=== PATIENT | male | born 1990 | race Caucasian/White ===

== ENCOUNTER 2020-12-29 15:11 | Emergency (ER) | payer SELFPAY ==
[2020-12-29 15:34] VITALS: BP 145/76; BP 74/40; PULSE 78; RESP 18; TEMP 36.8; O2SAT 82; O2SAT 98; BMI 25.0
--- NOTE | 2020-12-29 15:37 | ED_ITS ---
HPI - Alcohol General Chief Complaint: ETOH/Substance Use Stated Complaint: ?etoh Time Seen by Provider: 12/29/20 15:20 Source: patient and EMS Mode of arrival: EMS History of Present Illness HPI narrative: 30-year-old male with a past medical history of ETOH abuse brought in by ambulance s/p founding sleeping outside by bystander who called EMS for ETOH intoxication. Patient reports drinking EtOH today, will not specify amount. Denies illicit drug use. Denies falls, injury/trauma. Denies SI/HI. Denies CP/SOB, abdominal pain, nausea/vomiting MD complaint: alcohol intoxication Related Data Allergies Allergy/AdvReac Type Severity Reaction Status Date / Time No Known Allergies Allergy Unverified 06/09/20 15:53 [No Known Allergies*] Review of Systems Review of Systems: Constitutional: No Fever, No Chills Cardiovascular: No Chest Pain, No SOB Respiratory: No Cough, No Dyspnea Gastrointestinal: No Nausea, No Vomiting, No Abdominal pain Musculoskeletal: No joint pain, No Myalgias, No Joint Swelling Skin: No Skin Lesions, No rash Neuro: No Headache Psych: No SI/HI Yes all other systems are reviewed and are negative [facility] Past Medical History Attestation statement: The following information was validated with the patient. Social History Social History Advance Directives: No Advance Directives Information Provided: No Physical Exam Vital Signs: Vital Signs: Last Vital Signs Temp 98.2 F 12/29/20 15:34 Pulse 78 12/29/20 15:34 Resp 18 12/29/20 15:34 BP 145/76 H 12/29/20 15:34 Pulse Ox 98 12/29/20 15:34 Body Mass Index 25.0 Const: Other: Intoxicated. ETOH odor on breath General: cooperative, alert and awake HENMT: Head: Yes normal to inspection, Yes atraumatic, No Esposito's sign and No raccoon eyes Ears: hearing grossly normal bilaterally General nose exam: Normal external nose present Face and sinus: Yes normal facial exam Mouth: Normal oral and palatal mucosa present Eyes: General: appearance normal, both eyes and all related structures Pupils: Equal, round and reactive pupils present EOM: EOMs intact bilaterally Neck: Neck: Yes normal visual inspection and Yes no meningeal signs Chest: Chest palpation & inspection: normal inspection of the chest Resp: Effort & Inspection: normal respiratory effort, no grunting and not labored Cardio: Rate: regular rate Heart sounds: S1 normal heart sound present and S2 normal heart sound present Skin: Rashes: no rashes Wounds: no wounds Neuro: General: tone normal, moves all extremities and no meningeal signs Cranial nerves: Yes Equal, round and reactive pupils present Gait exam (Neuro): Normal gait present Motor exam (neuro): no tremor noted and Motor fasciculations not present Extrem: General: Yes normal to inspection Course Course Course Narrative: Patient is ambulating in the ED with steady gait. Continuously denies SI/HI. Plan to DC MDM - Alcohol MDM Narrative Medical decision making narrative: 30-year-old male with a past medical history of ETOH abuse brought in by ambulance s/p founding sleeping outside by bystander who called EMS for ETOH intoxication. On exam/VSS, NAD, intoxicated/EtOH odor on breath, [place], atraumatic. Will continue to observe and reassess for clinical sobriety Differential Diagnosis Differential diagnosis: Likely alcohol dependence and alcohol intoxication Medical Records Attestation: I reviewed the patient's medical records. Discharge Plan Discharge Clinical Impression: Alcoholic intoxication Qualifiers: Complication of substance-induced condition: uncomplicated Qualified Code(s): F10.920 - Alcohol use, unspecified with intoxication, uncomplicated Patient Disposition: Home, Self-Care Instructions: Alcohol Intoxication (ED) Additional Instructions: Do not drink alcohol or take drugs it can kill you If you have thoughts of hurting herself or hurting others please return to the ED immediately Follow up with her doctor Referrals: Physician,None [Primary Care Provider] - 2 days
--- NOTE | 2020-12-29 16:01 | MHC.RECOVSUP ---
Recovery Support note: Patient is a 30 year old Vincentian speaking male who presented to [facility] ED via EMS due to falling asleep in the community intoxicated. Patient acknowledges that his drinking is problematic at this point and states he wants to get into a program however not today as he wishes to leave at this time. Provided patient with information on [facility] and encouraged him to go there tomorrow morning for assistance getting into a treatment program. Patient reports he is currently homeless and [place]. Patient is intoxicated at this time and focused on leaving. This mortgage or loan underwriter available as needed.
== END 2020-12-29 16:53 | disposition home or self-care (01) ==
PROVIDERS: Emergency Provider Emergency Medicine
DX: F10.120 Alcohol abuse with intoxication, uncomplicated (principal); Y90.9 Presence of alcohol in blood, level not specified
CPT/HCPCS: 99283

== ENCOUNTER 2021-01-30 01:47 | Emergency (ER) | payer SELFPAY ==
[2021-01-30 01:48] VITALS: BP 155/106; PULSE 110; RESP 16; TEMP 36.1; O2SAT 95; BMI 23.6
[2021-01-30 01:59] VITALS: TEMP 36.6
--- NOTE | 2021-01-30 02:11 | ED.ALCOHOL ---
HPI - Alcohol General Chief Complaint: ETOH/Substance Use Stated Complaint: ETOH Time Seen by Provider: 01/30/21 01:52 Source: patient Mode of arrival: EMS History of Present Illness HPI narrative: 31-year-old male arrives via EMS after being found outside and significantly intoxicated. Otherwise, patient denies any acute symptoms. Related Data Allergies Allergy/AdvReac Type Severity Reaction Status Date / Time No Known Allergies Allergy Unverified 06/09/20 15:53 [No Known Allergies*] Review of Systems Review of Systems: Pertinent positives and negatives as mentioned in HPI 10 point review systems is otherwise negative. [facility] Past Medical History Source: nursing notes reviewed Medical History ETOH abuse Social History Social History Alcohol intake: current Alcohol intake frequency: 3 or more drinks per day Alcohol type: hard liquor Smoking Status: Unknown if ever smoked Use of substances other than those prescribed or required for medical reasons: No Advance Directives: No Advance Directives Information Provided: No Physical Exam Vital Signs: Vital Signs: Last Vital Signs Temp 97.9 F 01/30/21 01:59 Pulse 97 01/30/21 03:58 Resp 20 01/30/21 03:58 BP 149/70 H 01/30/21 03:58 Pulse Ox 96 01/30/21 03:58 Body Mass Index 23.6 VITAL SIGNS: Reviewed. GENERAL: Well developed, well nourished, in no acute distress. HEAD: Normocephalic/atraumatic EYES: PERRLA, EOMI OROPHARYNX: no oral lesions noted, posterior pharynx clear NECK: Supple, no adenopathy LUNGS: Normal breath sounds. No adventitious sounds or accessory muscle use. SpO2<96> CARDIOVASCULAR: Regular rate and rhythm without noted murmurs ABDOMEN: Soft, non-tender, non-distended with bowel sounds. NEUROLOGIC: Alert and oriented x 3. Strength and sensation to light touch were grossly intact x 4. Course Course Course Narrative: 31-year-old male with history and clinical presentation consistent with significant alcohol intoxication. BAL-436. Signed out to Dr Gutierrez Reevaluation(s) Reevaluation #1: Patient placed in physician observation because the patient needed more time to sober. At the time observation was started the patient's vital signs were stable, patient is alert and oriented, neuro: Nonfocal, CV RRR, lungs clear Time: 04:15 MDM - Alcohol Lab Data Labs: Lab Results 01/30/21 Range/Units 02:41 Ethyl Alcohol 436 H* mg/dL Discharge Plan Discharge Clinical Impression: Alcoholic intoxication Patient Disposition: Home, Self-Care Instructions: Alcohol Intoxication (ED) Additional Instructions: Return to the emergency department for any acute worsening of symptoms. Referrals: Physician,Unknown [Primary Care Provider] - 2 days
--- NOTE | 2021-01-30 02:22 | PC.NURSE ---
pt requires frequent redirection to no use profanity and to participate in care. patietn offered tolieting/po intake/and warm blanket.
[2021-01-30 03:09] LABS: Ethanol 436 mg/dL
[2021-01-30 03:58] VITALS: BP 149/70; PULSE 97; RESP 20; O2SAT 96
[2021-01-30 07:00] VITALS: RESP 16
--- NOTE | 2021-01-30 07:52 | PC.NURSE ---
pt sleeping, snoring at this time. will complete ciwa when pt wakes up. plan for dc when sober.
[2021-01-30 10:00] VITALS: RESP 16
--- NOTE | 2021-01-30 12:59 | PC.NURSE ---
pt now awake. steady independent gate to bathroom and back. pt speaking with counselor - plan for detox.
[2021-01-30 13:14] VITALS: BP 131/84; PULSE 87; RESP 16; O2SAT 98
--- NOTE | 2021-01-30 13:25 | MHC.RECOVSUP ---
? Reason for consult:Continuity of care o Current location:[address] [place] [address] o Identified substance use concern: ETOH - Overdose - Seeking ATS (detox) - Support ? Intervention: o ATS bed search started/completed/in process o Community resources provided o Harm reduction discussion ? Plan: o Bed search in progress o Patient to follow up with [facility] after discharge ? Additional information: Pt. seeking detox, patient drank 9 beers and 5 fireballs. Pt. drinks this amount everyday. Bed search in progress.
--- NOTE | 2021-01-30 13:55 | MHC.RECOVSUP ---
? Reason for consult:Continuity of care o Current location: Discharged o Identified substance use concern:ETOH - Withdrawal - Support ? Intervention: o MAT started or to be started o Community resources provided o Harm reduction discussion ? Plan: o Referral to [facility] o Patient to follow up with [facility] after discharge ? Additional information:Patient discharged after changing his mind.
== END 2021-01-30 13:57 | disposition home or self-care (01) ==
PROVIDERS: Student in an Organized Health Care Education/Training Program; Emergency Provider Emergency Medicine
DX: F10.129 Alcohol abuse with intoxication, unspecified (principal); Y90.8 Blood alcohol level of 240 mg/100 ml or more; Z71.41 Alcohol abuse counseling and surveillance of alcoholic
CPT/HCPCS: 36415; 80320; 99285

== ENCOUNTER 2021-03-18 21:44 | Emergency (ER) | payer SELFPAY ==
[2021-03-18 21:53] VITALS: BP 130/88; PULSE 100; O2SAT 100
[2021-03-18 21:55] VITALS: BP 144/102; PULSE 104; RESP 18; TEMP 36.7; O2SAT 97; BMI 22.0
[2021-03-18 22:02] VITALS: BP 140/92
--- NOTE | 2021-03-18 22:32 | ED.GENADULT ---
HPI - General Adult General Chief complaint: Animal Bite Stated complaint: spider bite Time Seen by Provider: 03/18/21 22:31 Source: patient Mode of arrival: EMS Limitations: no limitations History of Present Illness HPI narrative: patient comes emergency room complaining of a spider bite to the left wrist. Patient states it started 2 days ago. Patient noticed that his wrist started becoming erythematous. Patient denies fever chills. Related Data Previous Rx's Medication Instructions Recorded cephalexin [Keflex] 750 mg PO BID #14 cap 03/18/21 doxycycline hyclate 100 mg PO BID #14 cap 03/18/21 Allergies Allergy/AdvReac Type Severity Reaction Status Date / Time No Known Allergies Allergy Unverified 06/09/20 15:53 [No Known Allergies*] Review of Systems Review of Systems: Constitutional : No Weight loss, No Fever, No Chills, No Night Sweats, No Fatigue, No Malaise ENT/Mouth : No Hearing loss, No Ear Pain, No Nasal Congestion, No Sinus Pain, No Hoarseness, No sore throat, No Rhinorrhea, No Swallowing Difficulty Eyes: No Eye Pain, No Swelling, No Redness, No Foreign Body, No Discharge, No Vision Changes Cardiovascular : No Chest Pain, No SOB, No Dyspnea on Exertion, No Orthopnea, No Edema, No Palpitations Respiratory : No Cough, No Sputum, No Wheezing, No Smoke Exposure, No Dyspnea Gastrointestinal : No Nausea, No Vomiting, No Diarrhea, No Constipation, No abdominal Pain, No Hematochezia, No Melena Genitourinary : no irregular bleeding, No Dysuria, No Urinary Frequency, No Hematuria, No Urinary Incontinence, No Urgency, No Flank Pain, No Urinary Flow Changes, No Hesitancy Musculoskeletal : No joint pain, No Myalgias, No Joint Swelling Skin : Abrasion to the left wrist Neuro : No Weakness, No Numbness, No Paresthesias, No Loss of Consciousness, No Dizziness, No Headache Psych : No Anxiety/Panic, No Depression, No SI/HI/AH/VH, No Social Issues, Heme/Lymph: No Bruising, No Bleeding,No Lymphadenopathy Endocrine : No Polyuria, No Polydipsia, No Temperature Intolerance PMFSH Past Medical History Medical History ETOH abuse Social History Social History Alcohol intake: current Alcohol intake frequency: 3 or more drinks per day Alcohol type: hard liquor Advance Directives: No Physical Exam Vital Signs: Vital Signs: Last Vital Signs Temp 98.1 F 03/18/21 21:55 Pulse 104 H 03/18/21 21:55 Resp 18 03/18/21 21:55 BP 140/92 H 03/18/21 22:02 Pulse Ox 97 03/18/21 21:55 Body Mass Index 22.0 Appearance: Alert. Oriented X3. No acute distress. Eyes: Pupils equal, round and reactive to light. ENT: Pharynx normal. Neck: Normal inspection. Neck supple. No lymph nodes noted. No crepitus CVS: Normal heart rate and rhythm. Pulses normal. Normal S1 and S2 Respiratory: No respiratory distress. Breath sounds normal. No Wheezing. No rales Abdomen: Soft and nontender. No rigidity. No distention. good BS x4 Skin: Skin warm and dry. patient has a small abrasion to the dorsum of the left wrist, approximately 0.5 cm, however the erythema extends 3 cm beyond the border of the abrasion. Patient is able to flex and extend the wrist with no pain Extremities: No lower extremity edema. No lower extremity edema. No Lacerations. No Rash Neuro: Oriented X 3. No motor deficit. No sensory deficit. Moving all extermities. No slurred speech. Course Course Course Narrative: it is unclear if patient actually did have a spider bite, he does have an abrasion and cellulitis. Patient was given the 1st dose of doxycycline and Keflex. Patient is able to flex and extend his wrist with no pain, at this time, septic joint is not suspected. Discharge Plan Discharge Clinical Impression: Cellulitis Qualifiers: Site of cellulitis: extremity Site of cellulitis of extremity: upper extremity Laterality: left Qualified Code(s): L03.114 - Cellulitis of left upper limb Patient Disposition: Home, Self-Care Instructions: Cellulitis (ED) Additional Instructions: Please follow-up with your primary care physician tomorrow. If you have any worsening or new symptoms, please return to the emergency room or call 911 Prescriptions: New cephalexin [Keflex] 750 mg capsule 750 mg PO BID Qty: 14 RF: 0 doxycycline hyclate 100 mg capsule 100 mg PO BID Qty: 14 RF: 0
[2021-03-18] MEDS: cephALEXin 500 MG CAPSULE PO (22:37)
--- NOTE | 2021-03-18 22:39 | PC.NURSE ---
pt yelling and swearing in the hallway stating that he hates [place] never should have come here . pt seen by the provider and antibiotics ordered and given to the patient for an infection in the hand. pt verbally loud and aggressive to staff. pt given oral antibiotics and water and a sandwich and was informed with the help of the application architect that his antibiotics would be sent to the pharmacy and he can pick them up tomorrow. pt continues to be verbally aggressive to staff and states that we Arent doing anything . pt educated on the importance of the antibiotics and advised to not drink when taking them. pt continues to talk over staff and walk away.
--- NOTE | 2021-03-18 22:42 | PC.NURSE ---
pt steady gate while ambulating discharge papers given and sandwich also given to the patient
== END 2021-03-18 22:43 | disposition home or self-care (01) ==
PROVIDERS: Emergency Provider Emergency Medicine
DX: L03.114 Cellulitis of left upper limb (principal)
CPT/HCPCS: 99283

== ENCOUNTER 2021-05-01 04:33 | Emergency (ER) | payer SELFPAY ==
[2021-05-01 08:40] VITALS: BP 138/104; PULSE 73; RESP 16; TEMP 36.6; O2SAT 97; BMI 22.1
--- NOTE | 2021-05-01 09:03 | ED.EYEPROB ---
HPI - Eye Problem General Chief complaint: Eye Problems Stated complaint: eye issues Time Seen by Provider: 05/01/21 08:42 Source: patient Mode of arrival: ambulatory Limitations: no limitations History of Present Illness HPI Narrative: eye irritation for 3 months. No redness, patient states he is homeless. chief complaint: eye pain Onset (ago): week(s) Onset description: gradual Duration: constant Location: left eye Eye Symptoms: pain Mechanism: none Severity: mild Related Data Previous Rx's Medication Instructions Recorded cephalexin 750 mg capsule (Keflex) 750 mg PO BID #14 cap 03/18/21 doxycycline hyclate 100 mg capsule 100 mg PO BID #14 cap 03/18/21 erythromycin 5 mg/gram (0.5 %) eye 0.5 inch OPHTHALMIC (EYE) QID #3.5 05/01/21 ointment g Allergies Allergy/AdvReac Type Severity Reaction Status Date / Time No Known Allergies Allergy Unverified 06/09/20 15:53 [No Known Allergies*] Review of Systems Constitutional: Constitutional: Reports no additional constitutional complaints Eyes: Eyes: Reports no additional eye complaints ENT: Denies dizziness Cardiovascular: Cardiovascular: Reports no additional cardiovascular complaints Respiratory: Respiratory: Reports as per HPI Gastrointestinal: Gastrointestinal: Reports no additional gastrointestinal complaints Musculoskeletal: Musculoskeletal: Reports no additional musculoskeletal complaints Integumentary/Breasts: Skin/Breast: Denies rash Neurologic: Reports system reviewed and no additional complaints, except as documented, Denies dizziness and Denies Sensory deficit (Neuro) Psychiatric: Psychiatric: Denies anxiety PMF Past Medical History Medical History ETOH abuse Social History Social History Alcohol intake: current Alcohol intake frequency: 3 or more drinks per day Alcohol type: hard liquor Advance Directives: No Advance Directives Information Provided: No Physical Exam Vital Signs: Vital Signs: Last Vital Signs Temp 97.8 F 05/01/21 08:40 Pulse 73 05/01/21 08:40 Resp 16 05/01/21 08:40 BP 138/104 H 05/01/21 08:40 Pulse Ox 97 05/01/21 08:40 Body Mass Index 22.1 Const: General: healthy appearing Nutritional Appearance: average body habitus Orientation/consciousness: oriented to person and patient oriented x3 Limitations: no limitations HENMT: Head: Yes normal to inspection Ears: external ears normal General nose exam: Normal external nose present Mouth: Normal oral and palatal mucosa present and oropharynx normal Throat: Yes posterior oropharynx normal Eyes: Other: armin pressures 10, 10, 12. patient with swollen inferior eyelid that the patient has had for a while. Will treat for chalazion General: appearance normal, both eyes and all related structures Neck: Other: supple Neck: Yes normal visual inspection Chest: Chest palpation & inspection: normal inspection of the chest Resp: Auscultation: clear to auscultation bilaterally Cardio: Jugular venous distension: no JVD Rate: regular rate Rhythm: regular rhythm Heart sounds: S1 normal heart sound present and S2 normal heart sound present GI: Inspection: Yes normal to inspection Palpation (GI): Soft to palpation, nontender and No hepatosplenomegaly present Auscultation: normal bowel sounds : General: Yes no CVA tenderness Back/Spine/Pelvis: Back: no CVA tenderness Skin: General skin exam: no rashes or lesions noted Neuro: General: oriented to person and patient oriented x3 Cranial nerves: Yes CN's II-XII intact bilaterally Motor exam (neuro): 5/5 motor strength present throughout Sensory Exam: No Sensory deficit (Neuro) Extrem: General: Yes normal to inspection Psych: Appearance: grossly normal Course Reevaluation(s) Reevaluation #1: no eye injection, pressures normal, swelling to inferior lid will treat for chalazion with erythromycin Time: 09:19 Discharge Plan Discharge Clinical Impression: Chalazion left lower eyelid Patient Disposition: Home, Self-Care Instructions: Chalazion (ED) Additional Instructions: warm soaks 20 minutes off and on Prescriptions: New erythromycin 5 mg/gram (0.5 %) ointment 0.5 inch ophthalmic (eye) QID Qty: 3.5 RF: 0 No Action cephalexin [Keflex] 750 mg capsule 750 mg PO BID Qty: 14 RF: 0 doxycycline hyclate 100 mg capsule 100 mg PO BID Qty: 14 RF: 0
[2021-05-01] MEDS: Tetracaine HCl/PF 0.5% Oph Sol 4 ML DROPS 3 DROP EYE-LEFT (09:37)
[2021-05-01] MEDS: Erythromycin Base 0.5% Oph Oin 1 GM TUBE 1 CM EYE-LEFT (09:38)
--- NOTE | 2021-05-01 09:38 | PC.NURSE ---
Dr Mehta in to assess eye, pressures normal per MD. Erthromycin to eye as charted. Kenan from CARE team to bedside and discussing detox beds.
--- NOTE | 2021-05-01 09:54 | MHC.RECOVSUP ---
Recovery Support note: Patient is a 31 year old Mauritanian speaking male who presented to [facility] ED due to an eye issue. Patient was treated and is medically cleared. Patient reported to ED staff that he drinks everyday and that he wants to stop. This adjusto writer operator met with patient to discuss his alcohol use and treatment options. Patient reports he drinks liquor daily and he goes into withdrawal if he stops drinking. Patient states I'm still young, this is no way to live. Patient reports previous attempts at getting into detox have been unsuccessful. Patient reports he is willing to go anywhere for treatment. This adjusto writer operator will assist patient in securing a detox bed.
== END 2021-05-01 11:13 | disposition home or self-care (01) ==
PROVIDERS: Emergency Provider Emergency Medicine
DX: H00.15 Chalazion left lower eyelid (principal); H57.12 Ocular pain, left eye; Z79.899 Other long term (current) drug therapy
CPT/HCPCS: 99283

== ENCOUNTER 2021-09-12 16:34 | Emergency (ER) | payer OTHER, SELFPAY ==
--- NOTE | ~2021-09-12 | XR_ITS ---
EXAMINATION: XR CHEST CLINICAL INFORMATION: Shortness of breath with cough COMPARISON: None TECHNIQUE: Frontal view of the chest was obtained. FINDINGS: There is no evidence for an infiltrate. Lung mijares are grossly clear. The cardiac silhouette is within normal limits. There is no effusion. The hilar regions do not appear pathologically enlarged. XR/XR chest 1V IMPRESSION: No acute finding
[2021-09-12 17:17] VITALS: BP 100/71; PULSE 80; RESP 16; TEMP 36.9; BMI 21.5
[2021-09-12 18:01] LABS: COVID-19 Test Positive (Negative)
[2021-09-12 20:08] VITALS: BP 134/91; PULSE 70; RESP 16; TEMP 36.9; O2SAT 99
--- NOTE | 2021-09-12 21:06 | ED_ITS ---
HPI - URI/Sore Throat General Chief Complaint: Upper Respiratory Symptoms Stated Complaint: Flu like symptoms Time Seen by Provider: 09/12/21 20:25 Source: patient Mode of arrival: ambulatory History of Present Illness HPI Narrative: 31-year-old male with no significant past medical history presenting to the ED complaining of productive cough, rhinorrhea, nasal congestion, sore throat x 2 days. Patient reports he is homeless however spent the night with a friend for couple days who tested positive this morning. Reports mild SOB during coughing fits. Denies CP, fever, chills, pedal edema, recent travel MD elicited complaint: cough, sore throat, rhinorrhea and nasal congestion Related Data Previous Rx's Medication Instructions Recorded cephalexin 750 mg capsule (Keflex) 750 mg PO BID #14 cap 03/18/21 doxycycline hyclate 100 mg capsule 100 mg PO BID #14 cap 03/18/21 erythromycin 5 mg/gram (0.5 %) eye 0.5 inch OPHTHALMIC (EYE) QID #3.5 05/01/21 ointment g Allergies Allergy/AdvReac Type Severity Reaction Status Date / Time No Known Allergies Allergy Unverified 06/09/20 15:53 [No Known Allergies*] Review of Systems Review of Systems: Constitutional: No Fever, No Chills ENT/Mouth: No Ear Pain, + Nasal Congestion, No Sinus Pain, No Hoarseness, + sore throat, + Rhinorrhea, No Swallowing Difficulty Cardiovascular: No Chest Pain, No SOB Respiratory: + Cough, + Sputum, No Wheezing Gastrointestinal: No Nausea, No Vomiting, No Diarrhea, No Constipation, No Abdominal pain Genitourinary:No Hematuria, No Urgency, No Flank Pain Musculoskeletal: No joint pain, + Myalgias, No Joint Swelling Skin: No Skin Lesions, No rash Neuro: No Weakness Yes all other systems are reviewed and are negative PMFSH Past Medical History Attestation statement: The following information was validated with the patient. Medical History ETOH abuse Social History Social History Alcohol intake: current Alcohol intake frequency: 3 or more drinks per day Alcohol type: hard liquor Advance Directives: No Advance Directives Information Provided: Yes Physical Exam Vital Signs: Vital Signs: Last Vital Signs Temp 98.4 F 09/12/21 20:08 Pulse 70 09/12/21 20:08 Resp 16 09/12/21 20:08 BP 134/91 H 09/12/21 20:08 Pulse Ox 99 09/12/21 20:08 BMI result Body Mass Index 21.5 Const: General: cooperative and healthy appearing Orientation/consciousness: patient oriented x3 Limitations: no limitations HENMT: Head: Yes normal to inspection Ears: hearing grossly normal bilaterally, external ears normal, TM's normal bilaterally and mastoids normal General nose exam: Normal external nose present Face and sinus: Yes normal facial exam Mouth: Normal oral and palatal mucosa present Throat: Yes posterior oropharynx normal, Yes tonsils normal, No peritonsillar mass and No uvular edema Eyes: General: appearance normal, both eyes and all related structures EOM: EOMs intact bilaterally Neck: Neck: Yes normal visual inspection, Yes no meningeal signs, Yes trachea midline, Yes supple and No anterior neck swelling Resp: Effort & Inspection: normal respiratory effort and no respiratory distress Auscultation: clear to auscultation bilaterally, no crackles, no rales, no rhonchi and no wheezes Cardio: Rate: regular rate Heart sounds: S1 normal heart sound present and S2 normal heart sound present Skin: Rashes: no rashes Wounds: no wounds Neuro: General: patient oriented x3 and no meningeal signs Gait exam (Neuro): Normal gait present Extrem: General: Yes normal to inspection, Yes no pedal edema and Yes no calf tenderness Course Course Course Narrative: -COVID-19 --XR chest 1V IMPRESSION: No acute finding >> results discussed with patient including worrisome signs and symptoms and strict return precautions MDM - URI/Sore Throat [facility] Narrative Medical decision making narrative: 31-year-old male with no significant past medical history presenting to the ED complaining of productive cough, rhinorrhea, nasal congestion, sore throat x 2 days. On exam vital signs stable, NAD/nontoxic, lungs CTA. Concern for viral syndrome/COVID-19. Symptoms atypical for ACS/PE Plan: COVID-19 testing, CXR Differential Diagnosis Differential diagnosis: Likely upper respiratory infection, sinusitis, viral infection, bronchitis, influenza and pharyngitis Medical Records Attestation: I reviewed the patient's medical records. Lab Data Attestation: I reviewed the patient's lab results. Labs: Lab Results 09/12/21 Range/Units 17:39 COVID-19 (M[facility]) Positive A (Negative) COVID-19 Clin Com See Note Discharge Plan Discharge Clinical Impression: COVID-19 Patient Disposition: Home, Self-Care Instructions: COVID-19 (Coronavirus Disease 2019) (ED) Additional Instructions: At this time you will be okay for discharge. Please self isolate for 10-14 days. Do not expose yourself to others. You may not go to work or school. Please continue to follow cold instructions and wash your hands frequently. You may take Tylenol / Motrin as directed on the bottle for pain or fever. If you have constant or persistent shortness of breath, fever unresolved with medications, chest pain, or your unable to eat or drink please return to the ED CDC Guidelines for home isolation: - Stay away from others - WEAR A MASK if you are sick AND STAY HOME - Cover your mouth and nose with a tissue when you cough or sneeze. Dispose of tissues in a lined trash can and wash your hands immediately with soap and water for at least 20 seconds. If soap and water are not available, clean hands with alcohol-based hand holiday detector operator that contains at least 60% alcohol. - Clean your hands often with soap and water for at least 20 seconds - Avoid touching your eyes, nose and mouth with unwashed hands - Do not share dishes, drinking glasses, cups, eating utensils, towels, or bedding with other people in your home. After using these items, wash them thoroughly with soap and water or put in the compo caster. - Clean high-touch surfaces in your isolation area ( sick room and bathroom) every day; let a caregiver clean and disinfect high-touch surfaces in other areas of the home. Clean the area or item with soap and water or another detergent if it is dirty. Then, use a household disinfectant. - Limit contact with pets and animals: If you must care for a pet, wash your mendoza ds before and after interacting with them) Prescriptions: No Action cephalexin [Keflex] 750 mg capsule 750 mg PO BID Qty: 14 RF: 0 doxycycline hyclate 100 mg capsule 100 mg PO BID Qty: 14 RF: 0 erythromycin 5 mg/gram (0.5 %) ointment 0.5 inch ophthalmic (eye) QID Qty: 3.5 RF: 0 Referrals: Physician,None [Primary Care Provider] - 1 week (as needed.)
== END 2021-09-12 22:22 | disposition home or self-care (01) ==
PROVIDERS: Emergency Medicine; Emergency Provider Emergency Medicine
DX: U07.1 COVID-19 (principal)
CPT/HCPCS: 36415; 71045; 87635; 99283; 99284

== ENCOUNTER 2021-09-22 21:27 | Emergency (ER) | payer OTHER, SELFPAY ==
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
[2021-09-22 21:44] VITALS: BP 145/103; PULSE 102; RESP 18; TEMP 37; O2SAT 97; BMI 25.1
[2021-09-22] MEDS: Diphth,Pertus(ACell),Tet Adult 0.5 ML SYRINGE IM (22:01)
[2021-09-22 22:18] LABS: COVID-19 Test Positive (Negative)
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
--- NOTE | 2021-09-22 23:35 | PC.NURSE ---
pt is constantly yelling out, removing mask, and won't stay in stretcher. pt c/o discomfort to levi hands. PA aware.
== END 2021-09-23 00:41 | disposition home or self-care (01) ==
PROVIDERS: Nurse Practitioner Family; Emergency Provider Internal Medicine
DX: U07.1 COVID-19 (principal); F10.120 Alcohol abuse with intoxication, uncomplicated; Y90.9 Presence of alcohol in blood, level not specified; F17.200 Nicotine dependence, unspecified, uncomplicated
CPT/HCPCS: 36415; 87635; 90471; 90715; 99283; 99284

== ENCOUNTER 2021-09-28 21:12 | Emergency (ER) | payer MEDICAID, SELFPAY ==
[2021-09-28 22:14] VITALS: BP 150/108; PULSE 114; RESP 20; TEMP 36.4; O2SAT 98; BMI 22.8
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
[2021-09-29 08:26] VITALS: BP 149/108; PULSE 93; RESP 18; TEMP 36.7; O2SAT 98
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
[2021-09-29 09:33] LABS: COVID-19 Test Negative (Negative)
[2021-09-29] MEDS: Cyclobenzaprine HCl 10 MG TABLET PO (10:07)
[2021-09-29] MEDS: Ibuprofen 600 MG TABLET PO (10:07)
--- NOTE | 2021-09-29 10:51 | MHC.CARE ---
Pt is experiencing homelessness plan for Pt to the living room via [employer].
== END 2021-09-29 11:15 | disposition home or self-care (01) ==
PROVIDERS: Emergency Provider Emergency Medicine
DX: Z04.1 Encounter for examination and observation following transport accident (principal); M79.652 Pain in left thigh; M79.651 Pain in right thigh; Z59.00 Homelessness unspecified
CPT/HCPCS: 87635; 99283; 99284

== ENCOUNTER 2022-01-21 20:41 | Emergency (ER) | payer MEDICAID, SELFPAY ==
--- NOTE | ~2022-01-21 | XR_ITS ---
EXAMINATION: XR SHOULDER, LEFT CLINICAL INFORMATION: Left shoulder pain COMPARISON: None TECHNIQUE: Three views of the left shoulder. FINDINGS: The bones and soft tissues are normal. No fracture. Glenohumeral and acromioclavicular alignment is anatomic with normal joint space. No abnormal soft tissue calcifications. XR/XR shoulder LT min 2V IMPRESSION: Normal left shoulder.
[2022-01-21 20:49] VITALS: BP 134/72; PULSE 124; O2SAT 95
[2022-01-21 21:02] VITALS: BP 140/105; PULSE 115; RESP 20; TEMP 37.2; O2SAT 96; BMI 22.8
--- NOTE | 2022-01-21 21:13 | ECG_ITS ---
Test Reason : tacycardia Blood Pressure : / mmHG Vent. Rate : 086 BPM Atrial Rate : 086 BPM P-R Int : 132 ms QRS Dur : 096 ms QT Int : 372 ms P-R-T Axes : 062 070 052 degrees QTc Int : 445 ms Normal sinus rhythm Incomplete right bundle branch block Borderline ECG When compared with ECG of 23-JUN-2019 18:59, No significant change was found Referred By: Genevieve Delacruz Electronically Signed By:BERNICE SALEH MD
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
--- NOTE | 2022-01-21 21:29 | PHA.MEDREC ---
Pharmacy Consult ? Medication Reconciliation Pharmacy has completed the medication reconciliation.
[2022-01-21 21:36] LABS: MANUAL DIFF FLAG NO
[2022-01-21 21:41] LABS: Hematocrit 42.8 % (42.0-52.0); Hemoglobin 14.6 g/dl (14.0-18.0); Imm Gran Abs Auto 0.01 X10*3/uL (0.00-0.03); Imm Gran Pct Auto 0.3 % (0.0-0.4); Lymphocytes Absolute Auto 1.1 X10*3/uL (1.2-4.9); Lymphocytes Percent Auto 29.6 % (20-40); Mean Corpuscular HGB Conc 34.1 g/dl (31.0-36.0); Mean Corpuscular Hemoglobin 31.1 pg (27.0-33.0); Mean Corpuscular Volume 91.1 fL (80.0-98.0); Mean Platelet Volume 10.3 fL (9.4-12.4); Monocytes Absolute Auto 0.6 X10*3/uL (0.1-1.2); Monocytes Percent Auto 15.2 % (2-11); Neutrophils Percent Auto 52.9 % (45-73); Platelet Count 175 X10*3/uL (160-400); Red Cell Distribution Width 12.6 % (11.0-16.0); White Blood Count 3.8 X10*3/uL (4.8-10.8)
[2022-01-21] MEDS: 0.9 % Sodium Chloride 1,000 ML 999 ML IV (21:50)
[2022-01-21 21:55] LABS: Ethanol 402 mg/dL
[2022-01-21 21:57] LABS: COVID-19 Test Negative (Negative)
[2022-01-21 21:58] LABS: Troponin-I High Sensitivity 5.3 ng/L (<3.5-35.0)
[2022-01-21 22:01] LABS: Alanine Aminotransferase 137 U/L (0-40); Albumin Level 4.4 g/dL (3.5-5.0); Alkaline Phosphatase 151 U/L (39-117); Anion Gap 18 (12-20); Aspartate Amino Transferase 174 U/L (5-37); Bilirubin Total 0.5 mg/dL (0.0-1.0); Blood Urea Nitrogen 11 mg/dL (9-16); Calcium 9.4 mg/dL (8.4-10.2); Carbon Dioxide 25 mmol/L (22-29); Chloride 105 mmol/L (96-108); Creatinine Clr Calc Pharmacy 116.4; Estimated Glomerular Filt Rate > 60; Glucose Random 91 mg/dL (60-115); Magnesium 2.2 mg/dL (1.6-2.6); Potassium 3.8 mmol/L (3.3-5.1); Sodium 144 mmol/L (135-145); Total Protein 8.1 g/dL (6.5-8.0)
[2022-01-21] MEDS: LORazepam 1 MG TABLET 2 MG PO (22:04)
--- NOTE | 2022-01-21 22:43 | MHC.CARE ---
Recovery team will follow up with pt in the morning when his blood alcohol level has decreased.
[2022-01-21 23:32] VITALS: BP 127/63; PULSE 94; RESP 16; TEMP 37.1; O2SAT 95
--- NOTE | 2022-01-22 05:54 | PC.NURSE ---
[facility] online referral completed by this RN.
[2022-01-22 07:44] VITALS: BP 147/74; PULSE 73; RESP 19; O2SAT 98
--- NOTE | 2022-01-22 07:45 | PC.NURSE ---
sleeping and easily woken, skin wpd, alert, speech clear, no signs of withdrawl, no tremors, juice and warm blanket given, wants detox, daily etoh
--- NOTE | 2022-01-22 08:07 | MHC.RECOVSUP ---
Addendum entered by Kenan Canales [facility] 01/22/22 12:04: Patient declined from [facility] due to being uninsured. No beds available at [facility]. Patient accepted to [facility] and will be sent via [employer]. Original Note: Recovery Support note: Patient is a 32 year old Azeri speaking male who presented to [facility] ED seeking detox. Patient reports drinking 5 nips a day in addition to 4 beers. Patient demonstrates a sincere interest in getting help and getting into treatment. Patient reports he is willing to go anywhere for treatment. This production underwriter will assist patient in referring to ATS facilities.
[2022-01-22] MEDS: LORazepam 1 MG TABLET 2 MG PO (10:35)
[2022-01-22 12:03] VITALS: BP 160/75; PULSE 81; RESP 18; TEMP 36.9; O2SAT 99
== END 2022-01-22 12:05 | disposition other institution (70) ==
PROVIDERS: Physician Assistant; Emergency Provider Emergency Medicine
DX: F10.229 Alcohol dependence with intoxication, unspecified (principal); Y90.8 Blood alcohol level of 240 mg/100 ml or more; M25.512 Pain in left shoulder; F17.210 Nicotine dependence, cigarettes, uncomplicated; Z20.822 Contact with and (suspected) exposure to COVID-19
CPT/HCPCS: 36415; 73030; 80053; 82077; 83735; 84484; 85025; 87635; 93005; 96360; 99284

== ENCOUNTER 2022-04-14 09:15 | Emergency (ER) | payer MEDICAID, SELFPAY ==
[2022-04-14 09:24] VITALS: BP 121/76; BP 127/78; PULSE 90; PULSE 94; RESP 20; TEMP 37.1; O2SAT 92; O2SAT 95; BMI 22.8
--- NOTE | 2022-04-14 09:34 | ED.ALCOHOL ---
HPI - Alcohol General Chief Complaint: ETOH/Substance Use Stated Complaint: ETOH Time Seen by Provider: 04/14/22 09:29 Source: patient and EMS Mode of arrival: EMS Limitations: no limitations History of Present Illness HPI narrative: 32-year-old male with history of substance abuse presents with reports of drinking several alcoholic beverages this morning. Patient tells me last night he use some cocaine. He tells me he has longstanding history of alcohol use and uses every day. Patient tells me detox does not work for him. He has also tried Librium before but this does not help. Patient states nothing helps. He is not interested in detox. He denies suicidal or homicidal ideation. He has no physical complaints. He is currently homeless Related Data Home Medications Medication Instructions Recorded Confirmed No Known Home Meds 01/21/22 01/21/22 Allergies Allergy/AdvReac Type Severity Reaction Status Date / Time No Known Allergies Allergy Verified 01/21/22 21:04 [No Known Allergies*] Review of Systems Review of Systems: Yes all other systems are reviewed and are negative Constitutional: Constitutional: Reports no additional constitutional complaints, Denies body ache(s), Denies chills, Denies fever(s), Denies headache(s) and Denies weakness Eyes: Eyes: Reports no additional eye complaints and Denies change in vision ENT: Reports system reviewed and no additional complaints, except as documented, Denies dizziness, Denies headache(s), Denies nasal congestion, Denies nasal discharge and Denies neck pain Cardiovascular: Cardiovascular: Reports no additional cardiovascular complaints, Denies chest pain, Denies leg edema and Denies dyspnea Respiratory: Respiratory: Reports no additional respiratory complaints, Denies cough and Denies dyspnea Gastrointestinal: Gastrointestinal: Reports no additional gastrointestinal complaints, Denies abdominal pain, Denies diarrhea, Denies nausea and Denies vomiting Genitourinary: Genitourinary: Denies urinary incontinence Musculoskeletal: Musculoskeletal: Reports no additional musculoskeletal complaints, Denies back pain, Denies arthralgias, Denies joint swelling, Denies neck pain, Denies numbness and Denies tingling Integumentary/Breasts: Skin/Breast: Reports system reviewed and no additional complaints, except as docu and Denies rash Neurologic: Reports system reviewed and no additional complaints, except as documented, Denies dizziness, Denies headache(s), Denies numbness, Denies tingling and Denies weakness Psychiatric: Psychiatric: Denies homicidal ideation and Denies suicidal ideation [facility] Past Medical History Attestation statement: The following information was validated with the patient. Source: old records reviewed and nursing notes reviewed Medical History ETOH abuse Social History Social History Alcohol intake: current Alcohol intake frequency: 3 or more drinks per day Alcohol type: hard liquor Patient Tobacco Use Status: Current someday Tobacco user Advance Directives: No Advance Directives Information Provided: No Physical Exam ED Vital Signs: Vital Signs - 24 hr 04/14/22 09:24 Temperature 98.8 F Pulse Rate 94 Respiratory Rate 20 Blood Pressure 121/76 Pulse Oximetry 95 Oxygen Delivery Method Room Air BMI result Body Mass Index 22.8 Const General: cooperative, healthy appearing, comfortable and no acute distress Orientation/consciousness: patient oriented x3 Limitations: no limitations HENMT Head: Yes normal to inspection Ears: hearing grossly normal bilaterally Eyes General: appearance normal, both eyes and all related structures Pupils: Equal, round and reactive pupils present Neck Neck: Yes normal visual inspection, Yes full ROM, Yes no lymphadenopathy and Yes no meningeal signs Chest Chest palpation & inspection: normal inspection of the chest Resp Effort & Inspection: normal respiratory effort Auscultation: clear to auscultation bilaterally Cardio Rate: regular rate Rhythm: regular rhythm Peripheral pulses: Peripheral pulses 2+ throughout GI Inspection: Yes normal to inspection Palpation (GI): Soft to palpation and nontender Skin General skin exam: no rashes or lesions noted Neuro Other: Patient is sleeping but arouses to verbal General: patient oriented x3, moves all extremities and no meningeal signs Cranial nerves: Yes Equal, round and reactive pupils present Cognition (Neuro): normal cognition Course Course Course Narrative: Patient had 2 sb Ales 2 cheese sticks, a sandwich and a cookie Patient is up and ambulatory to the bathroom with a steady gait. He is alert oriented. Clinically he is sober and can be discharged. He was offered detox again but he declined. MDM - Alcohol MDM Narrative Medical decision making narrative: 32-year-old male here after having several alcoholic beverages and using some cocaine. No suicidal thoughts. No physical complaints. No concern for acute ingestion or trauma. Patient not interested in detox. Clinically he is intoxicated. Will need a sober re-evaluate prior to discharge Medical Records Attestation: I reviewed the patient's medical records. Lab Data Attestation: I reviewed the patient's lab results. Discharge Plan Discharge Clinical Impression: Alcoholic intoxication Patient Disposition: Home, Self-Care Instructions: Alcohol Intoxication (ED) Additional Instructions: Your offer detox but you declined Prescriptions: No Action No Known Home Meds Interventions: ED Discharge Assessment Last Done: 04/14/22 16:07 Discharge Date/Time: 04/14/22 16:07
--- NOTE | 2022-04-14 11:29 | MHC.RECOVRN ---
Briefly met with pt in 22H to discuss substance use. Pt sleeping, wakes momentarily to voice. Pt declines ATS or recovery services at this time. RN aware.
== END 2022-04-14 16:07 | disposition home or self-care (01) ==
PROVIDERS: Emergency Provider Student in an Organized Health Care Education/Training Program
DX: F10.120 Alcohol abuse with intoxication, uncomplicated (principal); Y90.9 Presence of alcohol in blood, level not specified; F19.10 Other psychoactive substance abuse, uncomplicated; F17.200 Nicotine dependence, unspecified, uncomplicated
CPT/HCPCS: 99282

== ENCOUNTER 2022-04-24 10:23 | Emergency (ER) | payer MEDICAID, SELFPAY ==
--- NOTE | ~2022-04-24 | XR_ITS ---
EXAMINATION: 2 VIEW CHEST, LUMBAR SPINE, PELVIS AND RIGHT HIP CLINICAL INFORMATION: Low back pain, posterior hip pain and cough with green sputum COMPARISON: Chest radiograph 09/12/2021 TECHNIQUE: 2 view chest, 3 views lumbar spine, single view pelvis with 2 additional views right hip FINDINGS: No significant abnormalities seen involving the heart, lungs, mediastinum or bony thorax. The lumbar spine appears normal. Vertebral body heights and disc spaces are well preserved. No significant degenerative changes are present. No significant bone, joint or soft tissue abnormality is seen in the pelvis or right hip. XR/XR chest 2V IMPRESSION: Normal exams.
--- NOTE | ~2022-04-24 | XR_ITS ---
EXAMINATION: 2 VIEW CHEST, LUMBAR SPINE, PELVIS AND RIGHT HIP CLINICAL INFORMATION: Low back pain, posterior hip pain and cough with green sputum COMPARISON: Chest radiograph 09/12/2021 TECHNIQUE: 2 view chest, 3 views lumbar spine, single view pelvis with 2 additional views right hip FINDINGS: No significant abnormalities seen involving the heart, lungs, mediastinum or bony thorax. The lumbar spine appears normal. Vertebral body heights and disc spaces are well preserved. No significant degenerative changes are present. No significant bone, joint or soft tissue abnormality is seen in the pelvis or right hip. XR/XR hip RT w PEL1V IMPRESSION: Normal exams.
--- NOTE | ~2022-04-24 | XR_ITS ---
EXAMINATION: 2 VIEW CHEST, LUMBAR SPINE, PELVIS AND RIGHT HIP CLINICAL INFORMATION: Low back pain, posterior hip pain and cough with green sputum COMPARISON: Chest radiograph 09/12/2021 TECHNIQUE: 2 view chest, 3 views lumbar spine, single view pelvis with 2 additional views right hip FINDINGS: No significant abnormalities seen involving the heart, lungs, mediastinum or bony thorax. The lumbar spine appears normal. Vertebral body heights and disc spaces are well preserved. No significant degenerative changes are present. No significant bone, joint or soft tissue abnormality is seen in the pelvis or right hip. XR/XR lumbar spine 2-3V IMPRESSION: Normal exams.
[2022-04-24 10:48] VITALS: BP 144/89; PULSE 93; RESP 16; TEMP 36.7; O2SAT 99; BMI 23.6
[2022-04-24 10:50] VITALS: BP 160/108; PULSE 105; O2SAT 98
--- NOTE | 2022-04-24 11:30 | ECG_ITS ---
Test Reason : med clearance Blood Pressure : / mmHG Vent. Rate : 085 BPM Atrial Rate : 085 BPM P-R Int : 120 ms QRS Dur : 088 ms QT Int : 394 ms P-R-T Axes : 057 066 048 degrees QTc Int : 468 ms Normal sinus rhythm Normal ECG When compared with ECG of 21-JAN-2022 22:08, No significant change was found Referred By: Mary Kinney Electronically Signed By:BERNICE SALEH MD
[2022-04-24 12:06] LABS: MANUAL DIFF FLAG NO
[2022-04-24 12:08] LABS: Basophils Percent Auto 0.4 % (0-2); Eosinophils Percent Auto 0.4 % (0-4); Hematocrit 44.7 % (42.0-52.0); Hemoglobin 15.3 g/dl (14.0-18.0); Imm Gran Abs Auto 0.03 X10*3/uL (0.00-0.03); Imm Gran Pct Auto 0.4 % (0.0-0.4); Lymphocytes Percent Auto 14.4 % (20-40); Mean Corpuscular HGB Conc 34.2 g/dl (31.0-36.0); Mean Corpuscular Hemoglobin 31.7 pg (27.0-33.0); Mean Corpuscular Volume 92.5 fL (80.0-98.0); Mean Platelet Volume 10.3 fL (9.4-12.4); Monocytes Absolute Auto 0.7 X10*3/uL (0.1-1.2); Neutrophils Absolute Auto 5.4 x10*3/uL (2.0-8.3); Neutrophils Percent Auto 74.4 % (45-73); Platelet Count 180 X10*3/uL (160-400); Red Blood Count 4.83 X10*6/uL (4.60-5.80); Red Cell Distribution Width 13.3 % (11.0-16.0); White Blood Count 7.2 X10*3/uL (4.8-10.8)
[2022-04-24 12:15] LABS: Prothrombin Time 11.5 SEC (10.0-13.1)
[2022-04-24 12:22] LABS: COVID-19 Test Negative (Negative); IDNOW Serial# 16C4AD1C
--- NOTE | 2022-04-24 12:25 | ED.PSYCH ---
HPI - Psych General Chief Complaint: Psychiatric Symptoms Stated Complaint: PSYCH/CRISIS,SI W/PLAN TO JUMP OFF BRIDGE PER EMS Time Seen by Provider: 04/24/22 11:30 Source: patient and EMS Mode of arrival: EMS Limitations: language barrier (Soanish-Speaking) History of Present Illness HPI Narrative: 32-year-old male with a past medical history of substance abuse/alcohol dependent reports he is currently homeless and is a daily drinker drinks approximately 7 beers a day and multiple nips of fireball or with ever he can get his hands on, who also reports that he uses cocaine that he sniffs which she used prior to arrival presenting to the ED with increased anxiety/depression with SI thoughts no plan at this time. Although he reported that approximately 4 months ago he tried to commit suicide by jumping off a bridge. He denies any HI/auditory visualization. He reports a productive cough with green-colored sputum and lower back pain/hip pain after he had a mechanical fall a few days ago. He denies head injury loss of consciousness prolonged down time. He denies any dizziness, headaches, neck pain/injury, chest pain or shortness of breath, dyspnea on exertion, orthopnea, sore throat, nasal congestion/rhinorrhea, nausea/vomiting/diarrhea constipation, black or bloody stools, abdominal pain, dysuria, hematuria, abnormal penile discharge, rashes or any other symptoms complaints or concerns at this time. MD complaint: suicidal ideation, feels depressed, anxiety, substance abuse and alcohol abuse Onset (ago): day(s) Duration: constant and getting worse History of same: Yes Relieving factors: none Exacerbating factors: alcohol, drug use and other (And being homeless) Context: recent alcohol abuse, recent drug abuse and significant life stressor (Homelessness) Associated psychiatric symptoms: depression, suicidal ideation and racing thoughts Associated symptoms: other (Cough with sputum production green colored sputum with lower back/right hip pain) Treatments prior to arrival: none If self harm: admits thoughts of self harm Related Data Home Medications Medication Instructions Recorded Confirmed No Known Home Meds 01/21/22 01/21/22 Allergies Allergy/AdvReac Type Severity Reaction Status Date / Time No Known Allergies Allergy Verified 01/21/22 21:04 [No Known Allergies*] Review of Systems Review of Systems: Constitutional : No Fever, No Chills ENT/Mouth : No Ear Pain, No Nasal Congestion, No sore throat Eyes: No Eye Pain, No Swelling, No Redness Cardiovascular : No Chest Pain, No SOB Respiratory : + Cough, + Sputum, No Dyspnea Gastrointestinal : No ingestions, No Nausea, No Vomiting, No Diarrhea, No Hematochezia, No Melena Genitourinary : No Dysuria, No Urinary Frequency, No Hematuria Musculoskeletal : + lower back and right hip pain, No Myalgias Skin : No Skin Lesions, No rash Neuro : No Weakness, No Numbness, No Paresthesias, No Dizziness, No Headache Psych : + Anxiety, + Depression, + SI, + No thoughts of self injury, No HI, No AVH, Heme/Lymph: No Lymphadenopathy Endocrine : No Polyuria, No Polydipsia Yes all other systems are reviewed and are negative [facility] Past Medical History Attestation statement: The following information was validated with the patient. Source: old records reviewed and nursing notes reviewed Medical History ETOH abuse Social History Social History Alcohol intake: current Alcohol intake frequency: 3 or more drinks per day Alcohol type: hard liquor Patient Tobacco Use Status: Current someday Tobacco user Advance Directives: No Advance Directives Information Provided: Yes Physical Exam Vital Signs: Vital Signs: Last Vital Signs Temp 98.0 F 04/24/22 10:48 Pulse 93 04/24/22 10:48 Resp 16 04/24/22 10:48 BP 144/89 H 04/24/22 10:48 Pulse Ox 99 04/24/22 10:48 O2 Del Method 04/24/22 10:48 BMI result Body Mass Index 23.6 vital signs have been reviewed as normal and appeared to be correct. Blood pressure 144/89. Heart rate normal. Respiration rate normal. Temperature normal. Oxygen saturation normal. Appearance: Alert. Oriented X3. No acute distress. Head: Normal external exam. Normocephalic. Atraumatic. No Esposito signs noted. No raccoon eyes noted Eyes: PERRLA. EOMI. Conjunctiva and sclera normal. Eyelids normal. ENT: EAC normal. TM's Normal. Pharynx normal. Uvula midline. Moist mucous membranes. No trismus noted. No drooling noted. No muffled voice noted. Neck: Normal inspection. Neck supple. FROM. No adenopathy. Thyroid Normal. No meningeal signs. No neck mass noted. CVS: Normal heart rate and rhythm. Heart sound normal. No murmurs noted. Pulses normal throughout. Respiratory: No respiratory distress. Painless inspiration. Breath sounds normal. No wheezes/rales/rhonchi noted. Chest nontender. No accessory muscle usage noted or decreased air movement noted. Abdomen: Soft and nontender. Bowel sounds normal in all 4 quadrants. No distention noted. No organomegaly noted. No visible injury noted. Back: No CVA tenderness. Full range of motion noted. Patient mild tenderness palpation to the right lower back at the muscular aspect of the lumbar spine. No mid lumbar tenderness step-offs or deformities noted. Patient does have tenderness palpation to the right posterior hip. He has some soft tissue swelling. He is neuro intact bilaterally and distally on all 4 extremities. Reflexes intact bilaterally and dyspnea on all 4 extremities. No rashes/lesion/induration/fluctuance or signs of infection noted. Skin: Skin warm and dry. Normal skin color. Normal skin turgor. No track signs noted. No rashes/lesions/lacerations noted. Extremities: No lower extremity edema. Extremities exhibit normal range of motion. Extremities nontender. Neuro: Oriented X 3. No motor deficit. No sensory deficit. Reflexes normal. CN's II-XII intact bilaterally? Psych: Appearance grossly normal, well-kept, mental status normal, speech and movement normal, speech clear, patient appears very sad and anxious along with depressed. Is cooperative. Normal thought process. Normal thought content. Normal good insight. Judgment good. Course Course Course Narrative: 11:30am - 32-year-old male with a past medical history of substance abuse/alcohol dependent reports he is currently homeless and is a daily drinker drinks approximately 7 beers a day and multiple nips of fireball or with ever he can get his hands on, who also reports that he uses cocaine that he sniffs which she used prior to arrival presenting to the ED with increased anxiety/depression with SI thoughts no plan at this time. Although he reported that approximately 4 months ago he tried to commit suicide by jumping off a bridge. He denies any HI/auditory visualization. He reports a productive cough with green-colored sputum and lower back pain/hip pain after he had a mechanical fall a few days ago. Plan: Will obtain labs, COVID swab, EKG, x-ray of chest/lumbar spine and right hip provide 500 mg of naproxen and 10 mg of Flexeril and re-evaluate. Reevaluation(s) Reevaluation #1: - labs reviewed and patient's BUN 4. AST 193. ALT 130. Alkaline phosphate 131. Which is similar when compared to priors visit. Total protein 8.2. Otherwise all other labs are within normal limits. UA within normal limits no evidence of UTI. Patient positive for cocaine and marijuana negative for all other drugs. ETOH level 240. Patient negative for COVID. Chest x-ray/lumbar spine and right hip and pelvis x-ray negative for any acute processes. - therefore at this time patient is placed in Physician observation because the patient is more time to evaluate by [facility]. Will continue to monitor. Time: 13:00 Reevaluation #2: - [facility] evaluated patient and patient now denies any SI reports that he wants to go to detox is very interested in detox for substance abuse. Therefore they are going to work on a detox center. Although Gladys Barrow reports they do not have a male bed. We are trying to get a bed at [facility] although if there is no bed at [facility] patient will be woken up at 18:00 and he will be sent to living room overnight and they will continue the detox bed search from there. Patient understands and agreeable to this plan. He denies any SI/HI/auditory visualization or thoughts of self injury. Will continue to monitor cell then and he will be discharged at 18:00 if they cannot find a bed and he will be going to living room. Time: 14:54 [facility] - Psych Medical Records Attestation: I reviewed the patient's medical records. Lab Data Attestation: I reviewed the patient's lab results. Result diagrams: 04/24/22 12:02 04/24/22 12:02 Labs: Lab Results 04/24/22 04/24/22 04/24/22 Range/Units 12: 12:02 12:02 WBC 7.2 (4.8-10.8) X10*3/uL RBC 4.83 (4.60-5.80) X10*6/uL Hgb 15.3 (14.0-18.0) g/dl Hct 44.7 (42.0-52.0) % MCV 92.5 (80.0-98.0) fL MCH 31.7 (27.0-33.0) pg MCHC 34.2 (31.0-36.0) g/dl RDW 13.3 (11.0-16.0) % Plt Count 180 (160-400) X10*3/uL MPV 10.3 (9.4-12.4) fL Immature Gran % (Auto) 0.4 (0.0-0.4) % Neut % (Auto) 74.4 H (45-73) % Lymph % (Auto) 14.4 L (20-40) % [place] % (Auto) 10.0 (2-11) % Eos % (Auto) 0.4 (0-4) % Baso % (Auto) 0.4 (0-2) % Lymph # (Auto) 1.0 L (1.2-4.9) X10*3/uL [place] # (Auto) 0.7 (0.1-1.2) X10*3/uL Eos # (Auto) 0.0 (0.0-0.4) X10*3/uL Baso # (Auto) 0.0 (0.0-0.2) X10*3/uL Abs Immat Gran (auto) 0.03 (0.00-0.03) X10*3/uL Absolute Neuts (auto) 5.4 (2.0-8.3) x10*3/uL Absolute Nucleated RBC 0.000 (0.0-0.012) X10*3/uL Nucleated RBC % (auto) 0.0 (0.0-0.2) /100WBC PT 11.5 (10.0-13.1) SEC INR 1.0 (0.9-1.1) Sodium 144 (135-145) mmol/L Potassium 5.1 D (3.3-5.1) mmol/L Chloride 103 (96-108) mmol/L Carbon Dioxide 29 (22-29) mmol/L Anion Gap 17 (12-20) BUN 4 L D (9-16) mg/dL Creatinine 0.88 (0.5-1.4) mg/dL Estim Creat Clear Calc 122.1 Estimated GFR > 60 Random Glucose 74 (60-115) mg/dL Calcium 9.9 (8.4-10.2) mg/dL Magnesium 2.2 (1.6-2.6) mg/dL Total Bilirubin 0.5 (0.0-1.0) mg/dL AST 193 H (5-37) U/L ALT 130 H (0-40) U/L Alkaline Phosphatase 131 H (39-117) U/L Total Protein 8.2 H (6.5-8.0) g/dL Albumin 4.7 (3.5-5.0) g/dL Lipase 60 (8-78) U/L Urine Color Urine Appearance Urine pH (5.0-8.0) Ur Specific [place] (1.005-1.025) Urine Protein (NEG-TRACE) MG/DL Urine Glucose (UA) (NEG) MG/DL Urine Ketones (NEG) MG/DL Urine Blood (NEG) Urine Nitrite (NEG) Ur Leukocyte Esterase (NEG) Urine Opiates Screen (Not Detect) Urine Fentanyl Screen (Not Detect) Ur Barbiturates Screen (Not Detect) Ur Phencyclidine Scrn (Not Detect) Ur Amphetamines Screen (Not Detect) U Benzodiazepines Scrn (Not Detect) Urine Cocaine Screen (Not Detect) U Marijuana (THC) Screen (Not Detect) Ethyl Alcohol 240 mg/dL COVID-19 (MERY) (Negative) COVID-19 Clin Com 04/24/22 04/24/22 04/24/22 Range/Units 12:02 12:35 12:35 WBC (4.8-10.8) X10*3/uL RBC (4.60-5.80) X10*6/uL Hgb (14.0-18.0) g/dl Hct (42.0-52.0) % MCV (80.0-98.0) fL MCH (27.0-33.0) pg MCHC (31.0-36.0) g/dl RDW (11.0-16.0) % Plt Count (160-400) X10*3/uL MPV (9.4-12.4) fL Immature Gran % (Auto) (0.0-0.4) % Neut % (Auto) (45-73) % Lymph % (Auto) (20-40) % [place] % (Auto) (2-11) % Eos % (Auto) (0-4) % Baso % (Auto) (0-2) % Lymph # (Auto) (1.2-4.9) X10*3/uL [place] # (Auto) (0.1-1.2) X10*3/uL Eos # (Auto) (0.0-0.4) X10*3/uL Baso # (Auto) (0.0-0.2) X10*3/uL Abs Immat Gran (auto) (0.00-0.03) X10*3/uL Absolute Neuts (auto) (2.0-8.3) x10*3/uL Absolute Nucleated RBC (0.0-0.012) X10*3/uL Nucleated RBC % (auto) (0.0-0.2) /100WBC PT (10.0-13.1) SEC INR (0.9-1.1) Sodium (135-145) mmol/L Potassium (3.3-5.1) mmol/L Chloride (96-108) mmol/L Carbon Dioxide (22-29) mmol/L Anion Gap (12-20) BUN (9-16) mg/dL Creatinine (0.5-1.4) mg/dL Estim Creat Clear Calc Estimated GFR Random Glucose (60-115) mg/dL Calcium (8.4-10.2) mg/dL Magnesium (1.6-2.6) mg/dL Total Bilirubin (0.0-1.0) mg/dL AST (5-37) U/L ALT (0-40) U/L Alkaline Phosphatase (39-117) U/L Total Protein (6.5-8.0) g/dL Albumin (3.5-5.0) g/dL Lipase (8-78) U/L Urine Color YELLOW Urine Appearance CLEAR Urine pH 7.0 (5.0-8.0) Ur Specific [place] 1.010 (1.005-1.025) Urine Protein TRACE (NEG-TRACE) MG/DL Urine Glucose (UA) NEG (NEG) MG/DL Urine Ketones NEG (NEG) MG/DL Urine Blood NEG (NEG) Urine Nitrite NEG (NEG) Ur Leukocyte Esterase NEG (NEG) Urine Opiates Screen Not Detected (Not Detect) Urine Fentanyl Screen Not Detected (Not Detect) Ur Barbiturates Screen Not Detected (Not Detect) Ur Phencyclidine Scrn Not Detected (Not Detect) Ur Amphetamines Screen Not Detected (Not Detect) U Benzodiazepines Scrn Not Detected (Not Detect) Urine Cocaine Screen POSITIVE H (Not Detect) U Marijuana (THC) Screen POSITIVE H (Not Detect) Ethyl Alcohol mg/dL COVID-19 (MERY) Negative (Negative) COVID-19 Clin Com See Note Imaging Data Chest x-ray/lumbar spine x-ray and right hip/pelvis x-ray: Attestation: I personally reviewed and interpreted this imaging study as follows: Radiologist's impression: EXAMINATION: 2 VIEW CHEST, LUMBAR SPINE, PELVIS AND RIGHT HIP CLINICAL INFORMATION: Low back pain, posterior hip pain and cough with green sputum? COMPARISON: Chest radiograph 09/12/2021? TECHNIQUE: 2 view chest, 3 views lumbar spine, single view pelvis with 2 additional views right hip? FINDINGS: No significant abnormalities seen involving the heart, lungs, mediastinum or bony thorax. The lumbar spine appears normal. Vertebral body heights and disc spaces are well preserved. No significant degenerative changes are present. No significant bone, joint or soft tissue abnormality is seen in the pelvis or right hip. XR/XR lumbar spine 2-3V IMPRESSION: Normal exams.? ECG Data Attestation: I personally reviewed and interpreted this ECG as follows: ECG interpretation date: 04/24/22 ECG interpretation time: 11:32 Interpretation: Normal sinus rhythm with ventricular rate of 85 with a normal KS interval normal QRS duration normal QT/QTC interval. No acute ischemic change are noted. Similar compared to prior EKG 01/21/2022 Discharge Plan Discharge Clinical Impression: Acute anxiety, Low back strain, Strain of right hip, Substance abuse Patient Disposition: Home, Self-Care Instructions: Polysubstance Abuse (ED), Anxiety (ED) Prescriptions: No Action No Known Home Meds Referrals: Physician,None [Primary Care Provider] - 2 days (your pcp)
[2022-04-24 12:36] LABS: Alanine Aminotransferase 130 U/L (0-40); Albumin Level 4.7 g/dL (3.5-5.0); Alkaline Phosphatase 131 U/L (39-117); Anion Gap 17 (12-20); Aspartate Amino Transferase 193 U/L (5-37); Bilirubin Total 0.5 mg/dL (0.0-1.0); Blood Urea Nitrogen 4 mg/dL (9-16); Calcium 9.9 mg/dL (8.4-10.2); Carbon Dioxide 29 mmol/L (22-29); Chloride 103 mmol/L (96-108); Creatinine Clr Calc Pharmacy 122.1; Estimated Glomerular Filt Rate > 60; Ethanol 240 mg/dL; Glucose Random 74 mg/dL (60-115); Lipase 60 U/L (8-78); Magnesium 2.2 mg/dL (1.6-2.6); Potassium 5.1 mmol/L (3.3-5.1); Sodium 144 mmol/L (135-145); Total Protein 8.2 g/dL (6.5-8.0)
[2022-04-24 12:42] LABS: Appearance Urine CLEAR; Color Urine YELLOW; Glucose Urine UA NEG (NEG); Leukocyte Esterase Urine NEG (NEG); Nitrite Urine NEG (NEG); Urine Blood NEG (NEG); Urine Ketones NEG (NEG); Urine Protein TRACE MG/DL (NEG-TRACE)
[2022-04-24 12:55] LABS: Amphetamine Screen Urine Not Detected (Not Detect); Barbiturates, Urine Not Detected (Not Detect); Benzodiazepines Screen Urine Not Detected (Not Detect); Cannabinoid Screen Urine POSITIVE (Not Detect); Cocaine Screen Urine POSITIVE (Not Detect); Fentanyl, urine Not Detected (Not Detect); Opiate Screen Urine Not Detected (Not Detect); Phencyclidine Screen Urine Not Detected (Not Detect)
[2022-04-24] MEDS: Cyclobenzaprine HCl 10 MG TABLET PO (13:27)
[2022-04-24] MEDS: NaPROXEN 500 MG TABLET PO (13:27)
== END 2022-04-24 18:06 | disposition home or self-care (01) ==
PROVIDERS: Physician Assistant Medical; Emergency Provider Emergency Medicine Emergency Medical Services
DX: F19.10 Other psychoactive substance abuse, uncomplicated (principal); F10.20 Alcohol dependence, uncomplicated; Y90.8 Blood alcohol level of 240 mg/100 ml or more; S76.011A Strain of muscle, fascia and tendon of right hip, initial encounter; S39.012A Strain of muscle, fascia and tendon of lower back, initial encounter; X58.XXXA Exposure to other specified factors, initial encounter; R45.851 Suicidal ideations; F41.9 Anxiety disorder, unspecified; F32.A Depression, unspecified; Z59.00 Homelessness unspecified; F17.200 Nicotine dependence, unspecified, uncomplicated; Z20.822 Contact with and (suspected) exposure to COVID-19; Y93.9 Activity, unspecified; Y92.9 Unspecified place or not applicable; Y99.9 Unspecified external cause status
CPT/HCPCS: 36415; 71046; 72100; 73502; 80053; 80307; 81003; 82077; 83690; 83735; 85025; 85610; 87635; 93005; 99284

== ENCOUNTER 2022-05-16 00:25 | Emergency (ER) | payer MEDICAID, SELFPAY ==
[2022-05-16 00:31] VITALS: BP 139/97; PULSE 104; RESP 18; TEMP 37.2; O2SAT 96; BMI 22.9
--- NOTE | 2022-05-16 00:41 | ED_ITS ---
HPI - Psych General Chief Complaint: ETOH/Substance Use Stated Complaint: si Time Seen by Provider: 05/16/22 00:35 Source: patient and EMS Mode of arrival: EMS Limitations: no limitations History of Present Illness HPI Narrative: Patient came to the emergency room via EMS. Patient walked into the police department, stating that he is suicidal, stating that he wants detox. Also patient stated that if he does not get into detox, he will kill himself Related Data Home Medications Medication Instructions Recorded Confirmed No Known Home Meds 05/16/22 05/16/22 Allergies Allergy/AdvReac Type Severity Reaction Status Date / Time No Known Allergies Allergy Verified 01/21/22 21:04 [No Known Allergies*] Review of Systems Review of Systems: Constitutional : No Weight loss, No Fever, No Chills, No Night Sweats, No Fatigue, No Malaise ENT/Mouth : No Hearing loss, No Ear Pain, No Nasal Congestion, No Sinus Pain, No Hoarseness, No sore throat, No Rhinorrhea, No Swallowing Difficulty Eyes: No Eye Pain, No Swelling, No Redness, No Foreign Body, No Discharge, No Vision Changes Cardiovascular : No Chest Pain, No SOB, No Dyspnea on Exertion, No Orthopnea, No Edema, No Palpitations Respiratory : No Cough, No Sputum, No Wheezing, No Smoke Exposure, No Dyspnea Gastrointestinal : No Nausea, No Vomiting, No Diarrhea, No Constipation, No abdominal Pain, No Hematochezia, No Melena Genitourinary : no irregular bleeding, No Dysuria, No Urinary Frequency, No Hematuria, No Urinary Incontinence, No Urgency, No Flank Pain, No Urinary Flow Changes, No Hesitancy Musculoskeletal : No joint pain, No Myalgias, No Joint Swelling Skin : No Skin Lesions, No rash Neuro : No Weakness, No Numbness, No Paresthesias, No Loss of Consciousness, No Dizziness, No Headache Psych : No Anxiety/Panic, No Depression, conditional suicidal statements based on detox placement, admits using alcohol and cocaine Heme/Lymph: No Bruising, No Bleeding,No Lymphadenopathy Endocrine : No Polyuria, No Polydipsia, No Temperature Intolerance PMF Past Medical History Medical History Cocaine abuse ETOH abuse Social History Social History Alcohol intake: current Alcohol intake frequency: 3 or more drinks per day Alcohol type: hard liquor Patient Tobacco Use Status: Current someday Tobacco user Advance Directives: No Advance Directives Information Provided: Yes Physical Exam Vital Signs: Vital Signs: Last Vital Signs Temp 98.9 F 05/16/22 00:31 Pulse 104 H 05/16/22 00:31 Resp 18 05/16/22 00:31 BP 139/97 H 05/16/22 00:31 Pulse Ox 96 05/16/22 00:31 O2 Del Method 05/16/22 00:31 BMI result Body Mass Index 22.9 Const: Other: Appearance: Alert. Oriented X3. No acute distress. Eyes: Pupils equal, round and reactive to light. ENT: Pharynx normal. Neck: Normal inspection. Neck supple. No lymph nodes noted. No crepitus CVS: Normal heart rate and rhythm. Pulses normal. Normal S1 and S2 Respiratory: No respiratory distress. Breath sounds normal. No Wheezing. No rales Abdomen: Soft and nontender. No rigidity. No distention. Skin: Skin warm and dry. Normal skin color. Normal skin turgor. Extremities: No lower extremity edema. No Lacerations. No Rash Neuro: Oriented X 3. No motor deficit. No sensory deficit. Moving all ext remities. No slurred speech. CN 2 through 12 grossly intact Psych: calm, cooperative, normal affect Course Course Course Narrative: Patient will stay overnight in the emergency room. Patient will be evaluated by the livestock judging coach is in the morning and assist with detox placement. Physician observation started at 00:44 06:00: No events overnight, vitals stable, urine tested positive for cocaine and marijuana, blood alcohol level 280 at 01:00. swimming coach or instructor consult pending MDM - Psych Lab Data Result diagrams: 05/16/22 01:13 05/16/22 01:13 Labs: Lab Results 05/16/22 05/16/22 05/16/22 Range/Units 00:49 00:49 00:49 WBC (4.8-10.8) X10*3/uL RBC (4.60-5.80) X10*6/uL Hgb (14.0-18.0) g/dl Hct (42.0-52.0) % MCV (80.0-98.0) fL MCH (27.0-33.0) pg MCHC (31.0-36.0) g/dl RDW (11.0-16.0) % Plt Count (160-400) X10*3/uL MPV (9.4-12.4) fL Immature Gran % (Auto) (0.0-0.4) % Neut % (Auto) (45-73) % Lymph % (Auto) (20-40) % [place] % (Auto) (2-11) % Eos % (Auto) (0-4) % Baso % (Auto) (0-2) % Lymph # (Auto) (1.2-4.9) X10*3/uL [place] # (Auto) (0.1-1.2) X10*3/uL Eos # (Auto) (0.0-0.4) X10*3/uL Baso # (Auto) (0.0-0.2) X10*3/uL Abs Immat Gran (auto) (0.00-0.03) X10*3/uL Absolute Neuts (auto) (2.0-8.3) x10*3/uL Absolute Nucleated RBC (0.0-0.012) X10*3/uL Nucleated RBC % (auto) (0.0-0.2) /100WBC Sodium (135-145) mmol/L Potassium (3.3-5.1) mmol/L Chloride (96-108) mmol/L Carbon Dioxide (22-29) mmol/L Anion Gap (12-20) BUN (9-16) mg/dL Creatinine (0.5-1.4) mg/dL Estim Creat Clear Calc Estimated GFR Random Glucose (60-115) mg/dL Calcium (8.4-10.2) mg/dL Total Bilirubin (0.0-1.0) mg/dL AST (5-37) U/L ALT (0-40) U/L Alkaline Phosphatase (39-117) U/L Total Protein (6.5-8.0) g/dL Albumin (3.5-5.0) g/dL Urine Color Yellow Urine Appearance Clear Urine pH 6.0 (5.0-8.0) Ur Specific [place] <= 1.005 (1.005-1.025) Urine Protein Negative (Neg-Trace) mg/dL Urine Glucose (UA) Negative (Negative) mg/dL Urine Ketones Negative (Negative) mg/dL Urine Blood Negative (Negative) Urine Nitrite Negative (Negative) Ur Leukocyte Esterase Negative (Negative) Urine Opiates Screen Not Detected (Not Detect) Urine Fentanyl Screen Not Detected (Not Detect) Ur Barbiturates Screen Not Detected (Not Detect) Ur Phencyclidine Scrn Not Detected (Not Detect) Ur Amphetamines Screen Not Detected (Not Detect) U Benzodiazepines Scrn Not Detected (Not Detect) Urine Cocaine Screen POSITIVE H (Not Detect) U Marijuana (THC) Screen POSITIVE H (Not Detect) Ethyl Alcohol mg/dL COVID-19 (MERY) Negative (Negative) COVID-19 Clin Com See Note 05/16/22 05/16/22 Range/Units 01:13 01:13 WBC 5.0 (4.8-10.8) X10*3/uL RBC 4.78 (4.60-5.80) X10*6/uL Hgb 14.9 (14.0-18.0) g/dl Hct 43.7 (42.0-52.0) % MCV 91.4 (80.0-98.0) fL MCH 31.2 (27.0-33.0) pg MCHC 34.1 (31.0-36.0) g/dl RDW 13.2 (11.0-16.0) % Plt Count 225 (160-400) X10*3/uL MPV 10.4 (9.4-12.4) fL Immature Gran % (Auto) 0.2 (0.0-0.4) % Neut % (Auto) 56.5 (45-73) % Lymph % (Auto) 29.8 (20-40) % [place] % (Auto) 11.5 H (2-11) % Eos % (Auto) 1.4 (0-4) % Baso % (Auto) 0.6 (0-2) % Lymph # (Auto) 1.5 (1.2-4.9) X10*3/uL [place] # (Auto) 0.6 (0.1-1.2) X10*3/uL Eos # (Auto) 0.1 (0.0-0.4) X10*3/uL Baso # (Auto) 0.0 (0.0-0.2) X10*3/uL Abs Immat Gran (auto) 0.01 (0.00-0.03) X10*3/uL Absolute Neuts (auto) 2.8 (2.0-8.3) x10*3/uL Absolute Nucleated RBC 0.000 (0.0-0.012) X10*3/uL Nucleated RBC % (auto) 0.0 (0.0-0.2) /100WBC Sodium 144 (135-145) mmol/L Potassium 4.7 (3.3-5.1) mmol/L Chloride 104 (96-108) mmol/L Carbon Dioxide 26 (22-29) mmol/L Anion Gap 19 (12-20) BUN 6 L (9-16) mg/dL Creatinine 0.86 (0.5-1.4) mg/dL Estim Creat Clear Calc 124.2 Estimated GFR > 60 Random Glucose 87 (60-115) mg/dL Calcium 9.3 D (8.4-10.2) mg/dL Total Bilirubin < 0.2 (0.0-1.0) mg/dL AST 79 H (5-37) U/L ALT 68 H (0-40) U/L Alkaline Phosphatase 102 D (39-117) U/L Total Protein 8.0 (6.5-8.0) g/dL Albumin 4.5 (3.5-5.0) g/dL Urine Color Urine Appearance Urine pH (5.0-8.0) Ur Specific [place] (1.005-1.025) Urine Protein (Neg-Trace) mg/dL Urine Glucose (UA) (Negative) mg/dL Urine Ketones (Negative) mg/dL Urine Blood (Negative) Urine Nitrite (Negative) Ur Leukocyte Esterase (Negative) Urine Opiates Screen (Not Detect) Urine Fentanyl Screen (Not Detect) Ur Barbiturates Screen (Not Detect) Ur Phencyclidine Scrn (Not Detect) Ur Amphetamines Screen (Not Detect) U Benzodiazepines Scrn (Not Detect) Urine Cocaine Screen (Not Detect) U Marijuana (THC) Screen (Not Detect) Ethyl Alcohol 280 mg/dL COVID-19 (MERY) (Negative) COVID-19 Clin Com Discharge Plan Discharge Clinical Impression: Alcohol dependence Patient Disposition: Still a Patient Prescriptions: No Action No Known Home Meds
[2022-05-16 01:13] LABS: Appearance Urine Clear; Color Urine Yellow; Glucose Urine UA Negative (Negative); Leukocyte Esterase Urine Negative (Negative); Nitrite Urine Negative (Negative); Specific Gravity - Urine <= 1.005 (1.005-1.025); Urine Blood Negative (Negative); Urine Ketones Negative (Negative); Urine Protein Negative (Neg-Trace)
[2022-05-16 01:18] LABS: MANUAL DIFF FLAG NO
[2022-05-16 01:21] LABS: Basophils Percent Auto 0.6 % (0-2); Eosinophils Absolute Auto 0.1 X10*3/uL (0.0-0.4); Eosinophils Percent Auto 1.4 % (0-4); Hematocrit 43.7 % (42.0-52.0); Hemoglobin 14.9 g/dl (14.0-18.0); Imm Gran Abs Auto 0.01 X10*3/uL (0.00-0.03); Imm Gran Pct Auto 0.2 % (0.0-0.4); Lymphocytes Absolute Auto 1.5 X10*3/uL (1.2-4.9); Lymphocytes Percent Auto 29.8 % (20-40); Mean Corpuscular HGB Conc 34.1 g/dl (31.0-36.0); Mean Corpuscular Hemoglobin 31.2 pg (27.0-33.0); Mean Corpuscular Volume 91.4 fL (80.0-98.0); Mean Platelet Volume 10.4 fL (9.4-12.4); Monocytes Absolute Auto 0.6 X10*3/uL (0.1-1.2); Monocytes Percent Auto 11.5 % (2-11); Neutrophils Absolute Auto 2.8 x10*3/uL (2.0-8.3); Neutrophils Percent Auto 56.5 % (45-73); Platelet Count 225 X10*3/uL (160-400); Red Blood Count 4.78 X10*6/uL (4.60-5.80); Red Cell Distribution Width 13.2 % (11.0-16.0)
[2022-05-16 01:27] LABS: Amphetamine Screen Urine Not Detected (Not Detect); Barbiturates, Urine Not Detected (Not Detect); Benzodiazepines Screen Urine Not Detected (Not Detect); Cannabinoid Screen Urine POSITIVE (Not Detect); Cocaine Screen Urine POSITIVE (Not Detect); Fentanyl, urine Not Detected (Not Detect); Opiate Screen Urine Not Detected (Not Detect); Phencyclidine Screen Urine Not Detected (Not Detect)
[2022-05-16 01:32] LABS: COVID-19 Test Negative (Negative)
[2022-05-16 02:16] LABS: Alanine Aminotransferase 68 U/L (0-40); Albumin Level 4.5 g/dL (3.5-5.0); Alkaline Phosphatase 102 U/L (39-117); Anion Gap 19 (12-20); Aspartate Amino Transferase 79 U/L (5-37); Bilirubin Total < 0.2 mg/dL (0.0-1.0); Blood Urea Nitrogen 6 mg/dL (9-16); Calcium 9.3 mg/dL (8.4-10.2); Carbon Dioxide 26 mmol/L (22-29); Chloride 104 mmol/L (96-108); Creatinine Clr Calc Pharmacy 124.2; Estimated Glomerular Filt Rate > 60; Ethanol 280 mg/dL; Glucose Random 87 mg/dL (60-115); Potassium 4.7 mmol/L (3.3-5.1); Sodium 144 mmol/L (135-145)
--- NOTE | 2022-05-16 06:07 | PC.NURSE ---
Patient slept through the night, no distress observed/reported, asymptomatic of withdrawal at this time, patient will be seen by trampoline team coach for detox bed search in the morning, patient is currently not on any home medication, med list updated accordingly, behavior appropriate non concerning, will continue to monitor.
--- NOTE | 2022-05-16 07:27 | PC.NURSE ---
patient appears to remain at rest at present respirations are even and unlabored patient appears in no distress
--- NOTE | 2022-05-16 11:36 | MHC.RECOVRN ---
Pt has been cleared by CARE Team, interested in ATS. T/w will conduct bedsearch.
--- NOTE | 2022-05-16 11:40 | MHC.RECOVRN ---
No bed availability at [facility] or [facility].
--- NOTE | 2022-05-16 11:48 | MHC.RECOVRN ---
Pt agreeable to expand radius. metal drill press operator Em, to continue process.
--- NOTE | 2022-05-16 12:49 | MHC.CARE ---
Pt is a 32 y/o Macedonian speaking, male who is previously known to the CARE Team via previous ER presentations.? Recovery team has working with this pt more frequently during his visits as he has often presented under the influence.? This morning, pt presented to the ED via ambulance with a complaint of conditional suicidal ideation. Per EMS report, patient walked to PD and requested detox help. Patient endorses SI if he doesn't get Detox help. Pt has been medically cleared and is being assessed by the CARE Team to determine appropriate treatment recommendations. Pt is alert and oriented x4 and is assessed for risk in his room in the Behavioral Health Pod of the ED.? He is dressed in hospital attire and appears his stated age.? He is engaged in the assessment and is help seeking stating that he wants a ?program? for his substance use.? His eye contact and speech are unremarkable.? He reports fair sleep and appetite.? He describes his mood as ?down? but not consistently down.? He stated that he sometimes feels down at night because he has time to think.? He feels that he is alone, and there is no way out of being homeless.? He stated that he doesn?t want to use or drink, he knows it?s a bad idea, but he does it for a reprieve from his feelings of being alone.? He has expressed an interest and a need to get into a program and get some help.?? His affect is congruent with his mood.? He denies SI, HI, , and self-harm urges.? He reports SI at times, again at night, but reports he never has intent.? Currently, he denies SI.? He does not appear delusional or experiencing sx of psychosis. Pt has been assessed for Risk and does not appear to be at risk.? Pt?s suicidal ideation appears to be conditional and in the context of his homelessness and substance use.? CARE Team has referred pt to the Recovery Team for detox placement. During a review of previous ED visits and Recovery notes it was noted that a barrier in the past for placement has been his not having insurance.? CARE Team has asked the Financial counseling department to assist in securing a [facility] for pt.
[2022-05-16] MEDS: LORazepam 1 MG TABLET 2 MG PO (14:54)
[2022-05-16 14:58] VITALS: BP 166/107; PULSE 75; TEMP 36.9; O2SAT 99
== END 2022-05-16 15:04 | disposition other institution (70) ==
PROVIDERS: Emergency Provider Emergency Medicine
DX: F10.20 Alcohol dependence, uncomplicated (principal); Y90.8 Blood alcohol level of 240 mg/100 ml or more; R45.851 Suicidal ideations; F17.200 Nicotine dependence, unspecified, uncomplicated; Z71.6 Tobacco abuse counseling; Z20.822 Contact with and (suspected) exposure to COVID-19; Z79.899 Other long term (current) drug therapy
CPT/HCPCS: 36415; 80053; 80307; 81003; 82077; 85025; 87635; 99283; 99284